=== PATIENT | female | born 1975 | race Caucasian/White ===

== ENCOUNTER 2023-07-25 21:01 | Emergency (ER) | payer OTHER, SELFPAY ==
[2023-07-25 21:06] VITALS: BP 172/109
[2023-07-25 21:43] LABS: % Basophils 0.5 % (0-2); % Eosinophils 0.2 % (0-6); % Immature Granulocytes 0.4 % (0-0.5); % Lymphocytes 23.4 % (20.5-51.1); % Monocytes 6.4 % (1.7-9.3); % Neutrophils 69.1 % (42.2-75.2); Absolute Basophils 0.1 10^3/uL (0-0.2); Absolute Immature Granulocytes 0.1 10^3/uL (0-0.05); Absolute Monocytes 0.8 10^3/uL (0.1-0.6); Absolute Neutrophils 8.7 10^3/uL (1.4-6.5); Hematocrit 35.4 % (37.0-47.0); Hemoglobin 12.3 g/dL (12.0-16.0); Mean Corp Hgb Conc. 34.7 g/dL (33.0-37.0); Mean Corpuscular Hgb 28.9 pg (27.0-31.0); Mean Corpuscular Volume 83.1 fL (81.0-99.0); Mean Platelet Volume 9.2 fL (7.4-10.4); Nucleated Red Blood Cells % 0 %; Platelet Count 312 10^3/uL (130-400); Red Blood Cell Count 4.26 10^6/uL (4.20-5.40); Red Cell Dist. Width 13.3 % (11.5-14.5); White Blood Cell Count 12.6 10^3/uL (4.8-10.8)
[2023-07-25 21:51] VITALS: BMI 32.5
--- NOTE | 2023-07-25 21:54 | EDRN ---
Pt has her period and says she is hemorrhaging. Pt had a super plus tampon in and has gone through 3 in one hour and is bleeding through her pants. This is third day of period and pt says she is usually done on third day. Pt also has pain in L
side. Heavy bleeding started around 1300. No clots, blood is dark red. No hx of similar symptoms. Pain on L abdomen wraps around to back. Nausea, no vomiting. No fever/chills/cough, cp, sob, dizziness. Pt feels weaker. Bleeding started first
follow by sharp L abd pain.
[2023-07-25 22:01] VITALS: BP 120/74
[2023-07-25] MEDS: NSS 1000 IV (22:33)
[2023-07-25 22:48] LABS: HCG, Serum Qualitative Screen Negative
[2023-07-25 22:56] LABS: Blood Urea Nitrogen 8 mg/dl (7-17); Calcium 9.1 mg/dl (8.4-10.2); Carbon Dioxide 27 mmol/L (22-30); Chloride 100 mmol/L (98-107); Estimated Creatinine Clearance 103 ml/min; Glucose 86 mg/dl (70-99); Potassium 3.5 mmol/L (3.5-5.1); Sodium 137 mmol/L (135-145); eGFR > 60.00
[2023-07-25 23:00] VITALS: BP 136/76
--- NOTE | 2023-07-25 23:14 | ED.GENMED ---
History of Present Illness
General
Chief Complaint: Vaginal Bleeding
Source: patient
Exam Limitations: none
Time Seen by Provider: 07/25/23 22:07
Nursing documentation reviewed up to this point in time: agreed with
Travel History
Have you had any contact with someone who has COVID-19?: No
Do you have any symptoms of coronavirus? Fever > 100 degrees, chills, cough, shortness of breath, sore throat, loss of taste or smell, muscle aches, or headache?: No
History of Present Illness
History of Present Illness:
This is a 47-year-old woman who has history of several CVAs in the past with no residual defects and reports unremarkable MRIs. She has history of hyperlipidemia, mml-rddfwwh-mxjatkhnr diabetes, GERD.
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
No history of similar episodes of heavy bleeding.
She states her menses are generally regular, monthly with moderate flow on day 2 and 3, with menses generally lasting 4 to 5 days total.
Her current menstrual period began 2 days ago and tonight she began with very heavy bleeding, soaking through several super tampons and a pad within an hour. She denies dizziness or lightheadedness, no nausea nor vomiting. She denies diarrhea or
constipation. She denies dysuria and urgency nor hematuria. She denies fever nor chills. She denies risk of .
She is maintained on low-dose aspirin.
She states she took a dose of Emmanuelle-[place] earlier today for mild nasal congestion, other than this, has taken no other yqci-mgu-zsfbxmr medications.
She relocated from [place] to this area January 2023. She states her last [facility] appointment was approximately 1 year ago. She has not established with local [facility] as yet.
Patient states she has a prior history of endometriosis, had been maintained on Depo-Provera until her for stroke in 2018�Depo-Provera was discontinued after that. Over the past several years however she denies heavy bleeding nor severe cramps.
Her youngest child is 18 years old.
Her daily medications include aspirin 81 mg, atorvastatin, metformin, pantoprazole, thiamine, B12
She does admit the bleeding has slowed down since arrival to the ED and with supine positioning.
Past History
Past History
ED Past Medical History: CVA, GERD, Hypercholesterolemia, NIDDM, Other (Hepatitis C, treated with Harvoni) and Other (Thyroid nodules-is planned to have thyroid biopsy scheduled at [place].)
ED Past Surgical History: Appendectomy and Other (Cyst removed from trachea)
Social History
Tobacco: Former smoker (Quit 2019 after her first stroke)
Alcohol: None
Drug: None
Living: with family
Employment: Employed
Family History
Family History: Cancer (Mother with history of colon cancer)
Phy Exam
Physical Exam
Physical Exam:
GENERAL: Alert , in no apparent distress. 47-year-old woman appears her stated age, bright and alert, pleasant, appears in no acute distress.
EYE: anicteric, conjunctiva are dark pink.
NECK: Supple, nontender, no meningismus, no significant adenopathy.
ENT: oral mucosa is moist. No rhinorrhea.
CARDIAC: Regular rate and rhythm. no murmur.
LUNGS: Clear breath sounds bilaterally, no acute respiratory distress, no wheezes/rales/rhonchi
ABDOMEN: Soft, nondistended, mild tenderness left lower quadrant, left mid flank region, no r/g, no cvat. normoactive BS. No palpable masses.
NEUROLOGICAL: Alert and oriented x3, no focal neuro deficits.
SKIN: Warm and dry, normal color, skin intact. No rash.
MUSCULOSKELETAL: No C/C/E. peripheral pulses are full and equal b/l. No palpable tenderness.
PSYCH: Normal and appropriate interaction.
Course
Orders/Labs/Results
Orders:
Orders
07/25/23 21:28
CBC/With Diff [Complete Blood Count/With Diff] Urgent
07/25/23 22:20
0.9% Sodium Chloride 1000 ml [Nss] 1,000 ml IV BOLUS
07/25/23 22:21
Test Result ONCE
Renal & Bladder US [US Renal With Bladder] Urgent
Comment:
Reason For Exam: LLQ to L flank pain tonight
US Pelvis Only (non-obstetric) Urgent
Comment:
Reason For Exam: severe vag bleeding tonight w LLQ pain
07/25/23 22:31
Basic Metabolic Panel Urgent
HCG, Serum Qualitative Screen Urgent
Abnormal Lab Results
07/25/23 07/25/23
21:28 22:31
WBC 12.6 H 10^3/uL
(4.8-10.8)
Hct 35.4 L %
(37.0-47.0)
Abs Immat Gran (auto) 0.1 H 10^3/uL
(0-0.05)
Absolute Neuts (auto) 8.7 H 10^3/uL
(1.4-6.5)
Absolute Monos (auto) 0.8 H 10^3/uL
(0.1-0.6)
Creatinine 0.5 L mg/dL
(0.6-1.0)
07/25/23 21:28
07/25/23 22:31
Vital Signs
Initial and Last Documented VS:
Initial Vital Signs
Temp Pulse Resp BP Pulse Ox
99.2 F 122 16 172/109 99
07/25/23 21:06 07/25/23 21:06 07/25/23 21:06 07/25/23 21:06 07/25/23 21:06
Last Documented Vital Signs
Temp Pulse Resp BP Pulse Ox
99.2 F 90 18 119/71 99
07/25/23 21:06 07/26/23 00:50 07/26/23 00:50 07/26/23 00:50 07/25/23 21:06
MDM/Problems Addressed
Differential Diagnosis Includes:
Patient presents with heavy vaginal bleeding, reportedly soaking through 3 tampons within an hour and blood soaking through her pants.
No history of similar episodes in the past.
Reports normal on time menses began 2 days ago.
Heavy vaginal bleeding accompanied with left lower quadrant abdominal pain radiating to left low back, left mid flank region.
Heavy bleeding may be minimal metrorrhagia, perimenopausal in nature. Less likely /spontaneous . Concern for ovarian cyst, endometriosis flare, uterine fibroid.
With complaints of left low back/left flank pain, accompanying ureteric stone is also a consideration.
Patient has remote history of hepatitis C, treated successfully with Harvoni. Advanced liver disease with coagulopathy is unlikely.
Bleeding has improved and patient is currently hemodynamically stable.
CBC is unremarkable. H&H 12.3/35.4. Minimally elevated white blood cell count of 12.6. Normal platelet count.
Will check hCG.
Check pelvic ultrasound as well as renal ultrasound.
With prior history of CVAs will avoid TXA.
*Radiology
Radiology exam reviewed: radiology read reviewed
*Pulse Oximetry
Patient hypoxic: no
*Critical Care Note
Total Time (30-74mins, 75-104mins- exclusive of procedures): Not Applicable
Update Note
Update Note:
07/26/2023 0056 AM
Patient has had no recurrent heavy vaginal bleeding. Has not required a change in pads since arrival to the ED.
Resting comfortably.
She remains hemodynamically stable.
Renal ultrasound and pelvic ultrasound are both unremarkable. Uterus appears normal. No focal uterine mass. Endometrial complex measures 3 mm in thickness, within normal limits. No adnexal masses nor cyst. No appreciable free fluid.
Will discharge to home with recommendations to stay well-hydrated on a daily basis.
Will refer to [facility] for follow-up.
ED Attending Note
-
Portions of this chart may have been created with voice recognition software.� Occasional wrong word or��sound alike� substitutions may have occurred due to the inherent limitations of voice recognition software.
Discharge Plan
Departure
Patient Disposition: Home (Routine Discharge)
Date of Disposition: 07/26/23
Time of Disposition: 00:57
Patient with high blood pressure during this ER visit?: No
Condition: Good
Discharge Problem:
Menorrhagia with regular cycle
Instructions: Heavy Periods (DC)
Prescriptions:
No Action
metformin 500 mg Tablet
500 mg PO DAILY
atorvastatin 80 mg Tablet
80 mg PO DAILY
cyanocobalamin (vitamin B-12) 1,000 mcg Tablet
1,000 mcg PO DAILY
thiamine HCl (vitamin B1) [Vitamin B-1] 100 mg Tablet
100 mg PO DAILY
pantoprazole 40 mg Tablet,Delayed Release (Dr/Ec)
40 mg PO DAILY
aspirin 81 mg Tablet,Chewable
81 mg PO DAILY
Referrals:
NONE,* [Family Provider] -
Kendra Lucas MD [Active] - Call in 1-3 days for appt
Interventions
Interventions:
*Risk Screen - Suicide Last Done: 07/25/23 21:06
*General Assessment Last Done: 07/25/23 21:06
*Neglect/Abuse Screening Last Done: 07/25/23 21:06
*ED COVID-19 Vaccine History Last Done: 07/25/23 21:51
ED-Female Genitourinary Assessment Last Done: 07/25/23 22:01
[2023-07-26 00:50] VITALS: BP 119/71
== END 2023-07-26 01:25 | disposition home or self-care (01) ==
LOC: EMR 21:01
PROVIDERS: Emergency Medicine; EMERGENCY PHYSICIAN Emergency Medicine
DX: N92.0 Excessive and frequent menstruation with regular cycle (principal); R10.32 Left lower quadrant pain; R09.81 Nasal congestion; R11.0 Nausea; M54.9 Dorsalgia, unspecified; E78.00 Pure hypercholesterolemia, unspecified; E11.9 Type 2 diabetes mellitus without complications; K21.9 Gastro-esophageal reflux disease without esophagitis; E04.2 Nontoxic multinodular goiter; N80.9 Endometriosis, unspecified; Z79.82 Long term (current) use of aspirin; Z79.84 Long term (current) use of oral hypoglycemic drugs; Z87.891 Personal history of nicotine dependence; Z86.73 Personal history of transient ischemic attack (TIA), and cerebral infarction without residual deficits; Z86.19 Personal history of other infectious and parasitic diseases; Z88.5 Allergy status to narcotic agent; Z88.8 Allergy status to other drugs, medicaments and biological substances
CPT/HCPCS: 99284; 96360; 96361; 76770; 76856; 80048; 84703; 85025

== ENCOUNTER 2023-09-25 16:51 | Emergency (ER) | payer OTHER, SELFPAY ==
[2023-09-25 16:53] VITALS: BP 118/94
[2023-09-25 18:36] VITALS: BP 116/63
[2023-09-25 18:50] LABS: % Basophils 0.3 % (0-2); % Eosinophils 0.1 % (0-6); % Immature Granulocytes 0.7 % (0-0.5); % Lymphocytes 9.3 % (20.5-51.1); % Monocytes 1.5 % (1.7-9.3); % Neutrophils 88.1 % (42.2-75.2); Absolute Immature Granulocytes 0.1 10^3/uL (0-0.05); Absolute Lymphocytes 1.1 10^3/uL (1.2-3.4); Absolute Monocytes 0.2 10^3/uL (0.1-0.6); Absolute Neutrophils 10.6 10^3/uL (1.4-6.5); Hematocrit 37.8 % (37.0-47.0); Hemoglobin 12.6 g/dL (12.0-16.0); Mean Corp Hgb Conc. 33.3 g/dL (33.0-37.0); Mean Corpuscular Hgb 27.7 pg (27.0-31.0); Mean Corpuscular Volume 83.1 fL (81.0-99.0); Mean Platelet Volume 8.9 fL (7.4-10.4); Nucleated Red Blood Cells % 0 %; Platelet Count 293 10^3/uL (130-400); Red Blood Cell Count 4.55 10^6/uL (4.20-5.40); Red Cell Dist. Width 13.5 % (11.5-14.5)
[2023-09-25 19:00] VITALS: BP 131/81
[2023-09-25 19:02] LABS: ALT (SGPT) 26 U/L (0-35); AST (SGOT) 29 U/L (14-36); Albumin 5.1 g/dl (3.5-5.0); Alkaline Phosphatase 111 U/L (38-126); Blood Urea Nitrogen 12 mg/dl (7-17); Calcium 10.3 mg/dl (8.4-10.2); Carbon Dioxide 25 mmol/L (22-30); Chloride 100 mmol/L (98-107); Glucose 126 mg/dl (70-99); Potassium 4.7 mmol/L (3.5-5.1); Sodium 135 mmol/L (135-145); Total Bilirubin 0.8 mg/dl (0.2-1.3); Total Protein 8.5 g/dl (6.3-8.2); eGFR > 60.00
[2023-09-25 19:05] VITALS: BP 131/81
[2023-09-25 19:08] LABS: D-Dimer 0.29 ug/mlFEU (0.00-0.50)
[2023-09-25 20:00] VITALS: BP 147/79
--- NOTE | 2023-09-25 20:40 | ED.GENMED ---
History of Present Illness
General
Chief Complaint: Breathing Problem
Source: patient
Exam Limitations: none
Time Seen by Provider: 09/25/23 17:32
Travel History
Have you had any contact with someone who has COVID-19?: No
Do you have any symptoms of coronavirus? Fever > 100 degrees, chills, cough, shortness of breath, sore throat, loss of taste or smell, muscle aches, or headache?: Yes
Symptoms:: SOB
History of Present Illness
History of Present Illness:
47-year-old female presents with difficulty breathing. She states there is mold in her apartment and she is concerned about it. She states that when arraigned yesterday and made her feel like she had more trouble breathing. The patient denies
fevers. She was seen at urgent care and given steroids and inhalers. She was unable to fill her steroid inhaler but did fill her albuterol and prednisone. Patient states she is not sure if she is just anxious or things are worsened.
Past History
Past History
ED Past Medical History: CVA, GERD, Hypercholesterolemia, NIDDM, Other (Hepatitis C, treated with Harvoni) and Other (Thyroid nodules-is planned to have thyroid biopsy scheduled at [place].)
ED Past Surgical History: Appendectomy and Other (Cyst removed from trachea)
Social History
Tobacco: Former smoker (Quit 2019 after her first stroke)
Alcohol: None
Drug: None
Living: with family
Employment: Employed
Family History
Family History: Cancer (Mother with history of colon cancer)
Phy Exam
Physical Exam
Physical Exam:
CONSTITUTIONAL Patient alert and oriented to person, place and time. Well-appearing. Vital signs reviewed.
HEAD atraumatic, normocephalic.
EYES eyelids normal to inspection, Extraocular muscles intact, Conjunctiva normal, Sclera normal.
NECK normal range of motion, Trachea midline, no jugular venous distention.
RESPIRATORY CHEST No respiratory distress noted, Chest expansion equal, Bilateral breath sounds clear.
CARDIOVASCULAR regular rate and rhythm, Heart sounds normal.
ABDOMEN abdomen nontender, Bowel sounds normal. No distention.
BACK normal inspection, no obvious deformities
UPPER EXTREMITY range of motion normal, Motor strength normal, no cyanosis, no edema.
LOWER EXTREMITY range of motion normal, Motor strength normal, no cyanosis, no edema.
NEURO Speech normal, No focal motor deficits, [place] coma scale 15, Memory normal, Cranial Nerves intact to screening exam.
SKIN skin warm, dry, and normal in color.
PSYCHIATRIC patient oriented to person place and time, Normal affect.
Scores
Heart Failure Risk
Heart Failure Risk Score: Not Applicable
Course
Orders/Labs/Results
Orders:
Orders
09/25/23 18:40
Electrocardiogram (*1) Urgent
Reason for Study: Shortness of Breath
EKG- Treatment ONCE
09/25/23 18:43
Complete Blood Count/With Diff Urgent
Comprehensive Metabolic Panel Urgent
D-Dimer Urgent
09/25/23 19:16
CR Chest - 2 Views Urgent
Comment:
Reason For Exam: sob
Abnormal Lab Results
09/25/23
18:43
WBC 12.0 H 10^3/uL
(4.8-10.8)
Abs Immat Gran (auto) 0.1 H 10^3/uL
(0-0.05)
Absolute Neuts (auto) 10.6 H 10^3/uL
(1.4-6.5)
Absolute Lymphs (auto) 1.1 L 10^3/uL
(1.2-3.4)
Immature Gran % 0.7 H %
(0-0.5)
Neutrophils % 88.1 H %
(42.2-75.2)
Lymphocytes % 9.3 L %
(20.5-51.1)
Monocytes % 1.5 L %
(1.7-9.3)
Glucose 126 H mg/dl
(70-99)
Calcium 10.3 H mg/dl
(8.4-10.2)
Total Protein 8.5 H g/dl
(6.3-8.2)
Albumin 5.1 H g/dl
(3.5-5.0)
09/25/23 18:43
09/25/23 18:43
Vital Signs
Initial and Last Documented VS:
Initial Vital Signs
Temp Pulse Resp BP Pulse Ox
98.8 F 100 16 118/94 96
09/25/23 16:53 09/25/23 16:53 09/25/23 16:53 09/25/23 16:53 09/25/23 16:53
Last Documented Vital Signs
Temp Pulse Resp BP Pulse Ox
98.8 F 95 18 147/79 100
09/25/23 19:00 09/25/23 20:00 09/25/23 20:00 09/25/23 20:00 09/25/23 20:00
MDM/Problems Addressed
Differential Diagnosis Includes:
Pneumonia, PE, reactive airway disease, ACS, electrolyte imbalance, anemia
MDM/Problems Addressed:
Dyspnea
*Radiology
Radiology exam reviewed: all reviewed NAD by ED Provider
*Pulse Oximetry
Patient hypoxic: no
*EKG
Interpreted by ED Provider?: Yes
Interpretation: normal
Rate: normal
Rhythm: sinus
Hayden: normal axis
Ischemia: no ischemia
*Exhibit Preparator Interpretation
Rate: normal
Rhythm: sinus
*Critical Care Note
Total Time (30-74mins, 75-104mins- exclusive of procedures): Not Applicable
Data Reviewed
Source: patient
Further Testing Considered But Not Given:
Consider CT but D-dimer negative
Patient Management
Escalation/DeEscalation of care consider admission/obs:
Appears well. Already on steroids. Already bronchodilators. Outpatient follow-up if needed. D-dimer negative. Labs unremarkable
ED Attending Note
-
Portions of this chart may have been created with voice recognition software.� Occasional wrong word or��sound alike� substitutions may have occurred due to the inherent limitations of voice recognition software.
Discharge Plan
Departure
Patient Disposition: Home (Routine Discharge)
Date of Disposition: 09/25/23
Time of Disposition: 20:41
Patient with high blood pressure during this ER visit?: Yes
Discharge Problem:
Acute dyspnea
Instructions: Shortness of Breath (Dyspnea) (DC), BLOOD PRESSURE
Prescriptions:
No Action
metformin 500 mg Tablet
500 mg PO DAILY
atorvastatin 80 mg Tablet
80 mg PO DAILY
cyanocobalamin (vitamin B-12) 1,000 mcg Tablet
1,000 mcg PO DAILY
thiamine HCl (vitamin B1) [Vitamin B-1] 100 mg Tablet
100 mg PO DAILY
pantoprazole 40 mg Tablet,Delayed Release (Dr/Ec)
40 mg PO DAILY
aspirin 81 mg Tablet,Chewable
81 mg PO DAILY
prednisone 10 mg Tablets,Dose Pack
10 mg PO DIRECTED
albuterol sulfate 90 mcg/actuation Hfa Aerosol Inhaler
2 puff INHALATION QID
Referrals:
UNKNOWN - PT DOES,NOT KNOW [Family Provider] -
Activity Restrictions/Additional Instructions:
Please see your doctor in the next 3 days for follow-up and re-evaluation.
Return immediately for chest pain, shortness of breath, fevers or any other concerns. Continue your current steroids and inhalers.
Interventions
Interventions:
*Risk Screen - Suicide Last Done: 09/25/23 16:53
*General Assessment Last Done: 09/25/23 16:53
*Neglect/Abuse Screening Last Done: 09/25/23 16:53
ED- Fall Risk Assessment Last Done: 09/25/23 19:07
*ED COVID-19 Vaccine History Last Done: 09/25/23 19:07
*Nursing Disposition Last Done: 09/25/23 20:52
ED- Cardiac Assessment Last Done: 09/25/23 19:07
ED- Pulmonary Assessment Last Done: 09/25/23 19:07
Discharge Date and Time
Discharge Date/Time: 09/25/23 21:11
Print Language: YORUBA
== END 2023-09-25 21:11 | disposition home or self-care (01) ==
LOC: EMR 16:51
PROVIDERS: EMERGENCY PHYSICIAN Emergency Medicine
DX: R06.00 Dyspnea, unspecified (principal); K21.9 Gastro-esophageal reflux disease without esophagitis; E11.9 Type 2 diabetes mellitus without complications; E78.00 Pure hypercholesterolemia, unspecified; Z59.19 Other inadequate housing; Z86.73 Personal history of transient ischemic attack (TIA), and cerebral infarction without residual deficits; Z87.891 Personal history of nicotine dependence; Z90.49 Acquired absence of other specified parts of digestive tract
CPT/HCPCS: 99283; 71046; 80053; 85025; 85379; 93005